=== PATIENT | male | born 1955 | race Caucasian/White ===

== ENCOUNTER 2021-10-15 07:38 | Emergency (ER) | payer OTHER ==
[2021-10-15] MEDS ORDERED: amLODIPine 5 MG Tab PO ONE (08:15)
[2021-10-15 10:20] VITALS: PULSE 78
[2021-10-15 10:23] VITALS: BP 205/114
== END 2021-10-15 10:24 | disposition home or self-care (01) ==
LOC: JD.ED 07:38
DX: I10 Essential (primary) hypertension (principal); J44.9 Chronic obstructive pulmonary disease, unspecified; Z72.0 Tobacco use
CPT/HCPCS: 36415; 80053; 81001; 85025; 93005; 99283; A9270

== ENCOUNTER 2021-11-21 10:36 | Day surgery (SDC) | payer OTHER ==
[~2021-11-21 10:36] MED LIST: Cefuroxime 10 MG/ML SYRINGE EYERT SCH; Lidocaine 1% PF 2 ML SDV INJECT SCH; Pilocarpine 4% Ophth Soln 15 ML Bot EYERT SCH
[2021-11-21 11:09] VITALS: BP 174/90
[2021-11-21] MEDS: Polymyxin B/Trimethoprim 10 ML Bottle EYERT SCH ×3 (12:17→14:07)
[2021-11-21] MEDS: Brimonidine 0.2% Ophth Soln 5 ML Bottle EYERT SCH ×3 (12:20→14:07)
[2021-11-21] MEDS: Phenylephrine 2.5% Ophth Soln 2 ML Bot EYERT SCH ×5 (12:23→13:49)
[2021-11-21] MEDS: Tropicamide 1% Ophth Soln 15 ML Bottle EYERT SCH ×4 (12:26→13:21)
[2021-11-21] MEDS: Tetracaine HCl/PF 0.5% 4 ML Bottle EYEBOTH SCH ×2 (13:35→13:55)
[2021-11-21 14:25] VITALS: PULSE 80
== END 2021-11-21 14:19 | disposition home or self-care (01) ==
LOC: JD.SDS 10:36
PROVIDERS: ATTEND Ophthalmology
DX: H25.813 Combined forms of age-related cataract, bilateral (principal); I10 Essential (primary) hypertension; F17.200 Nicotine dependence, unspecified, uncomplicated; Z79.899 Other long term (current) drug therapy
CPT/HCPCS: 66984; C1780; J0697

== ENCOUNTER → 2021-12-19 | Day surgery (SDC) | payer OTHER ==
[~2021-12-19] MED LIST changes: +Brimonidine 0.2% Ophth Soln 5 ML Bottle EYELF SCH; +Cefuroxime 10 MG/ML SYRINGE EYELF SCH; -Cefuroxime 10 MG/ML SYRINGE EYERT SCH; +Phenylephrine 2.5% Ophth Soln 2 ML Bot EYELF SCH; +Pilocarpine 4% Ophth Soln 15 ML Bot EYELF SCH; -Pilocarpine 4% Ophth Soln 15 ML Bot EYERT SCH; +Polymyxin B/Trimethoprim 10 ML Bottle EYELF SCH; +Tetracaine HCl/PF 0.5% 4 ML Bottle EYEBOTH SCH; +Tropicamide 1% Ophth Soln 15 ML Bottle EYELF SCH
[2021-12-19 11:32] VITALS: PULSE 80
== END ==
LOC: JD.SDS 11:36
PROVIDERS: ATTEND Ophthalmology
DX: H26.9 Unspecified cataract (principal); Z53.09 Procedure and treatment not carried out because of other contraindication

== ENCOUNTER 2022-01-16 09:21 | Emergency (ER) | payer OTHER ==
[2022-01-16] MEDS ORDERED: Labetalol 100 MG/20 ML MDV IVPUSH ONE (09:45)
[2022-01-16] MEDS ORDERED: Sodium Chloride 0.9% 10 ML Syringe FLUSH PRN (09:45)
[2022-01-16 10:46] VITALS: BP 181/97; PULSE 61
== END 2022-01-16 10:40 | disposition home or self-care (01) ==
LOC: JD.ED 09:21
DX: I10 Essential (primary) hypertension (principal); Z79.899 Other long term (current) drug therapy
CPT/HCPCS: 93005; 96374; 99283; J3490; 93010; 99284

== ENCOUNTER 2022-03-20 08:05 | Day surgery (SDC) | payer OTHER ==
[2022-03-20] MEDS: Polymyxin B/Trimethoprim 10 ML Bottle EYELF SCH ×4 (08:08→10:26)
[2022-03-20] MEDS: Brimonidine 0.2% Ophth Soln 5 ML Bottle EYELF SCH ×4 (08:12→10:26)
[2022-03-20] MEDS: Phenylephrine 2.5% Ophth Soln 2 ML Bot EYELF SCH ×6 (08:19→10:01)
[2022-03-20] MEDS: Tropicamide 1% Ophth Soln 15 ML Bottle EYELF SCH ×4 (08:23→09:11)
[2022-03-20] MEDS: Pilocarpine 4% Ophth Soln 15 ML Bot EYELF SCH ×2 (09:49→10:26)
[2022-03-20] MEDS: Cefuroxime 10 MG/ML SYRINGE EYELF SCH ×2 (09:52→10:25)
[2022-03-20] MEDS: Lidocaine 1% PF 2 ML SDV INJECT SCH ×2 (09:52→10:09)
[2022-03-20] MEDS: Tetracaine HCl/PF 0.5% 4 ML Bottle EYEBOTH SCH ×4 (09:57→10:09)
[2022-03-20 10:40] VITALS: BP 150/94; PULSE 66
== END 2022-03-20 10:35 | disposition home or self-care (01) ==
LOC: JD.SDS 08:05
PROVIDERS: ATTEND Ophthalmology
DX: H26.9 Unspecified cataract (principal); I10 Essential (primary) hypertension; F17.210 Nicotine dependence, cigarettes, uncomplicated; F41.9 Anxiety disorder, unspecified; Z98.890 Other specified postprocedural states; Z79.899 Other long term (current) drug therapy
CPT/HCPCS: 66984; J0697; C1780